=== PATIENT | male | born 1945 | race Caucasian/White ===

== ENCOUNTER 2018-01-12 05:29 | Inpatient (IN) ==
[2018-01-12 07:13] LABS: Basophils # 0.1 10*3/uL (0.0-0.2); Basophils % 1.3 % (0.0-0.8); Eosinophils # 0.2 10*3/uL (0.0-0.87); Eosinophils % 3.5 % (0.00-10.9); Hematocrit 50.5 VOL% (42.0-52.0); Hemoglobin 17.1 GM/DL (14.0-18.0); Immature Granulocytes % 0.3 %; Immature Granulocytes Absolute 0.02 #; Lymphocytes # 1.8 10*3/uL (1.4-4.0); Lymphocytes % 29.1 % (21.2-54.2); Mean Corpuscular HGB Conc 33.9 GM/DL (32-36); Mean Corpuscular Hemoglobin 31 PG (27-34); Mean Corpuscular Volume 92.2 FL (87-102); Mean Platelet Volume 10.2 FL (9.6-12.0); Monocytes # 0.6 10*3/uL (0.11-0.8); Monocytes % 9.5 % (1.7-12.7); Neutrophils # 3.5 10*3/uL (1.4-7.4); Neutrophils % 56.3 % (38.7-73.9); Platelet Count 184 T/CUMM (130-400); Red Blood Count 5.48 MC/CUMM (3.8-5.5); White Blood Count 6.2 T/CUMM (4-12)
[2018-01-12 07:29] LABS: Calcium 9.2 MG/DL (8.5-10.1); Osmolality,Calculated 278.5 MOS/KG (273-304); Potassium 3.8 MMOL/L (3.5-5.1)
[2018-01-12] MEDS ORDERED: SODIUM CHLORIDE IV ONE (07:40)
[2018-01-12] MEDS ORDERED: HEPARIN IV ONE (07:40)
[2018-01-12] MEDS ORDERED: LIDOCAINE 1% 20 ML VIAL ONE (07:48)
[2018-01-12] MEDS ORDERED: HEPARIN/NACL 0.9% 2 UNITS/ML 1,000 ML IV ONE ×2 (08:05→11:00)
[2018-01-12 08:22] LABS: Apearance,Urine CLEAR (Clear); Bilirubin,Urine Negative (Negative); Blood, Urine Negative (Negative); Glucose,Urine (UA) Negative (Negative); Ketones,Urine Negative (Negative); Nitrite,Urine Negative (Negative); Protein,Urine Negative; RBC,Urine 6 /HPF (0-4); Urine Color Yellow (Yellow); Urine Specific Gravity 1.008 (1.001-1.035); Urine Urobilinogen < 2.0 EU/DL (0.2-1.0); WBC,Urine 1 /HPF (0-6)
[2018-01-12] MEDS ORDERED: HEPARIN DRIP 25,000 UNITS/500 ML PREMIX IV ONE (09:37)
[2018-01-12] MEDS ORDERED: ADENOSINE 90 MG/30 ML VIAL IV ONE (11:38)
[2018-01-12] MEDS ORDERED: ACETAMINOPHEN 325 MG TABLET PO PRN (12:34)
[2018-01-12] MEDS ORDERED: ASPIRIN EC 325 MG TABLET PO ONE (12:34)
[2018-01-12] MEDS ORDERED: ONDANSETRON 4 MG/2 ML VIAL IV PRN (12:34)
[2018-01-12] MEDS ORDERED: diphenhydrAMINE CAP 25 MG CAPSULE PO PRN (12:35)
[2018-01-12] MEDS ORDERED: DICLOFENAC 1% GEL 100 GM TUBE TOP PRN (12:35)
[2018-01-12] MEDS ORDERED: IBUPROFEN 400 MG TABLET PO PRN (12:37)
[2018-01-12] MEDS ORDERED: FUROSEMIDE 40 MG/4 ML VIAL ONE (12:48)
[2018-01-12] MEDS ORDERED: PROTAMINE SULFATE 50 MG/5 ML VIAL IV ONE (13:59)
[2018-01-12] MEDS ORDERED: ETOMIDATE 40 MG/20 ML VIAL IV ONE (13:59)
[2018-01-12] MEDS ORDERED: MIDAZOLAM 2 MG/2 ML VIAL ONE (13:59)
[2018-01-12] MEDS ORDERED: DESFLURANE 1 UNIT/15 MINUTE INH ONE (13:59)
[2018-01-12] MEDS ORDERED: fentaNYL 100 MCG/2 ML VIAL ONE (13:59)
[2018-01-12] MEDS ORDERED: PHENYLEPHRINE 10 MG/1 ML VIAL IV ONE (14:00)
[2018-01-12] MEDS ORDERED: SUCCINYLCHOLINE 200 MG/10 ML VIAL ONE (14:00)
[2018-01-12] MEDS ORDERED: LACTATED RINGERS 1,000 ML IV ONE (14:00)
[2018-01-12] MEDS ORDERED: SODIUM CHLORIDE 0.9% 500 ML IV ONE (14:00)
[2018-01-12] MEDS ORDERED: ROCURONIUM 100 MG/10 ML VIAL IV ONE (14:00)
[2018-01-12] MEDS ORDERED: PHENYLEPHRINE DRIP 40 MG/250 ML PREMIX IV SCH (14:30)
[2018-01-12] MEDS: SODIUM CHLORIDE 0.9% 1,000 ML IV SCH (15:01)
[2018-01-12] MEDS: METHOCARBAMOL 500 MG TABLET PO SCH ×3 (15:07→20:33)
[2018-01-12] MEDS: PANTOPRAZOLE 40 MG TABLET PO SCH ×2 (15:07→20:15)
[2018-01-12] MEDS: CALCIUM (CITRATE)/VITAMIN D 200 MG-125 UNIT TABLET PO SCH (20:15)
[2018-01-12] MEDS: APIXABAN 5 MG TABLET PO SCH (20:15)
[2018-01-12] MEDS: BUDESONIDE 3 MG CAPSULE PO SCH (20:16)
[2018-01-12] MEDS: METOPROLOL SUCCINATE XL 50 MG TABLET PO SCH (20:33)
[2018-01-12] MEDS: ZALEPLON 5 MG CAPSULE PO PRN ×2 (20:33→23:20)
[2018-01-12] MEDS ORDERED: PSYLLIUM POWDER 3.7 GM/PACK PO SCH (21:00)
[2018-01-12] MEDS ORDERED: METOPROLOL SUCCINATE XL 50 MG TABLET PO SCH (21:00)
[2018-01-12] MEDS ORDERED: SIMVASTATIN 20 MG TABLET PO SCH (21:00)
[2018-01-13] MEDS: SODIUM CHLORIDE 0.9% 1,000 ML IV SCH (01:04)
[2018-01-13 05:30] LABS: Basophils % 0.1 % (0.0-0.8); Hematocrit 40.6 VOL% (42.0-52.0); Immature Granulocytes % 0.5 %; Immature Granulocytes Absolute 0.05 #; Lymphocytes # 0.7 10*3/uL (1.4-4.0); Lymphocytes % 7.9 % (21.2-54.2); Mean Corpuscular Hemoglobin 32 PG (27-34); Mean Corpuscular Volume 93.3 FL (87-102); Mean Platelet Volume 9.8 FL (9.6-12.0); Monocytes # 0.1 10*3/uL (0.11-0.8); Monocytes % 1.5 % (1.7-12.7); Neutrophils # 8.2 10*3/uL (1.4-7.4); Platelet Count 157 T/CUMM (130-400); Red Cell Distribution Width 12.7 % (9.3-17.3)
[2018-01-13 05:59] LABS: Hemoglobin 13.8 GM/DL (14.0-18.0); Red Blood Count 4.35 MC/CUMM (3.8-5.5); White Blood Count 9.1 T/CUMM (4-12)
[2018-01-13 06:05] LABS: Calcium 8.1 MG/DL (8.5-10.1); Osmolality,Calculated 283.4 MOS/KG (273-304); Potassium 3.6 MMOL/L (3.5-5.1)
[2018-01-13] MEDS ORDERED: LORATADINE 10 MG TABLET PO SCH (09:00)
[2018-01-13] MEDS ORDERED: hydroCHLOROthiazide 25 MG TABLET PO SCH (09:00)
[2018-01-13] MEDS ORDERED: ASPIRIN EC 81 MG TABLET PO SCH (09:00)
[2018-01-13] MEDS ORDERED: LISINOPRIL 20 MG TABLET PO SCH (09:00)
[2018-01-13] MEDS ORDERED: AMITRIPTYLINE 10 MG TABLET PO SCH (09:00)
[2018-01-13] MEDS ORDERED: MULTIVITAMIN (CENTRUM) TABLET PO SCH (09:00)
[2018-01-13] MEDS ORDERED: FEBUXOSTAT 80 MG TABLET PO SCH (09:00)
[2018-01-13] MEDS ORDERED: METRONIDAZOLE TOP SCH (09:00)
[2018-01-13] MEDS: BUDESONIDE 3 MG CAPSULE PO SCH (10:23)
[2018-01-13] MEDS: PANTOPRAZOLE 40 MG TABLET PO SCH (10:25)
[2018-01-13] MEDS: APIXABAN 5 MG TABLET PO SCH (10:25)
[2018-01-13] MEDS: METOPROLOL SUCCINATE XL 50 MG TABLET PO SCH (10:27)
[2018-01-13] MEDS: CALCIUM (CITRATE)/VITAMIN D 200 MG-125 UNIT TABLET PO SCH (10:27)
[2018-01-13 13:54] VITALS: BP 120/80
== END 2018-01-13 11:35 | disposition home or self-care (01) | DRG 274 ==
LOC: N.CL 05:29 → N.CC 14:06
PROVIDERS: ADMIT Internal Medicine Clinical Cardiac Electrophysiology; ATTEND Internal Medicine Clinical Cardiac Electrophysiology